=== PATIENT | male | born 1940 | race African-American/Black ===

== ENCOUNTER → 2016-09-21 | Outpatient (CLI) | payer MEDICARE, OTHER ==
[~2016-09-21] MED LIST: AMLO10TA4 PO; ASPI-986 PO; ASPIRIN; FINA5TAB11 PO; IBUP-1636 PO; METO25TA6 PO; METOPROLOL; OMEP40CA34 PO; SIMV80TA70 PO; SIMVASTATIN
== END | disposition home or self-care (01) ==
LOC: RAD 15:16
PROVIDERS: ATTEND Internal Medicine Nephrology
DX: Z01.818 Encounter for other preprocedural examination (principal); R06.02 Shortness of breath
CPT/HCPCS: 71010

== ENCOUNTER → 2017-07-20 | Outpatient (CLI) | payer MEDICARE, OTHER ==
[~2017-07-20] MED LIST changes: -ASPIRIN; +FENTANYL CITRATE/PF 50MCG/ML 2ML VIAL ONE; +GLYCOPYRROLATE 0.2 MG/ML 2ML VIAL ONE; -METOPROLOL; +NEOSTIGMINE METHYLSULFATE 1MG/ML 10 ML VIAL ONE; +PHENYLEPHRINE HCL 10 MG/ML 1ML (IV VIAL) IV ONE; +PROPOFOL 200MG/20ML VIAL IV ONE; -SIMVASTATIN; +SUCCINYLCHOLINE CHLORIDE 200MG/10ML VIAL IV ONE; +VECURONIUM BROMIDE 10 MG/VIAL IV ONE
== END | disposition home or self-care (01) ==
LOC: RAD 16:14
PROVIDERS: ATTEND Internal Medicine Nephrology
DX: Z01.818 Encounter for other preprocedural examination (principal); K46.9 Unspecified abdominal hernia without obstruction or gangrene; I10 Essential (primary) hypertension; Z86.79 Personal history of other diseases of the circulatory system
CPT/HCPCS: 71045

== ENCOUNTER → 2017-07-21 | Day surgery (SDC) | payer MEDICARE, OTHER ==
[~2017-07-21] VITALS: Ht 182.9 cm; Wt 86.2 kg
[~2017-07-21] MED LIST changes: +BUPIVACAINE HCL 0.5% (5MG/ML) 50ML ONE; +BUPIVACAINE HCL/PF 0.5% (5MG/ML) 10ML ONE; -FENTANYL CITRATE/PF 50MCG/ML 2ML VIAL ONE; -GLYCOPYRROLATE 0.2 MG/ML 2ML VIAL ONE; +HYDRALAZINE 20MG/ML VIAL IV SCH; +HYDROCODONE/ACETAMINOPHEN 5/325MG TABLET PO PRN; +HYDROMORPHONE HCL/PF 2MG/ML CPJ IV PRN; -NEOSTIGMINE METHYLSULFATE 1MG/ML 10 ML VIAL ONE; +ONDANSETRON HCL 4MG/2ML VIAL IV PRN; -PHENYLEPHRINE HCL 10 MG/ML 1ML (IV VIAL) IV ONE; -PROPOFOL 200MG/20ML VIAL IV ONE; +SKIN ADHESIVE 0.7 GM EA TOP ONE; -SUCCINYLCHOLINE CHLORIDE 200MG/10ML VIAL IV ONE; -VECURONIUM BROMIDE 10 MG/VIAL IV ONE
[2017-07-21 11:55] VITALS: BP 138/65
== END | disposition home or self-care (01) ==
LOC: OR 06:05
PROVIDERS: ATTEND Surgery
DX: K40.90 Unilateral inguinal hernia, without obstruction or gangrene, not specified as recurrent (principal); I10 Essential (primary) hypertension; I25.10 Atherosclerotic heart disease of native coronary artery without angina pectoris; I25.2 Old myocardial infarction; M19.90 Unspecified osteoarthritis, unspecified site; Z79.82 Long term (current) use of aspirin; Z79.899 Other long term (current) drug therapy; Z95.1 Presence of aortocoronary bypass graft; Z86.79 Personal history of other diseases of the circulatory system; N40.0 Benign prostatic hyperplasia without lower urinary tract symptoms
CPT/HCPCS: 49650; C1781; G0168; J0330; J2370; J2710; J3010; J3490; J7030; J7120; J2704

== ENCOUNTER 2018-08-17 05:53 | Day surgery (SDC) | payer MEDICARE, OTHER ==
[~2018-08-17] VITALS: Ht 185.4 cm; Wt 89.4 kg
[~2018-08-17 05:53] MED LIST changes: -BUPIVACAINE HCL 0.5% (5MG/ML) 50ML ONE; -BUPIVACAINE HCL/PF 0.5% (5MG/ML) 10ML ONE; -HYDRALAZINE 20MG/ML VIAL IV SCH; -HYDROCODONE/ACETAMINOPHEN 5/325MG TABLET PO PRN; -HYDROMORPHONE HCL/PF 2MG/ML CPJ IV PRN; -ONDANSETRON HCL 4MG/2ML VIAL IV PRN; -SKIN ADHESIVE 0.7 GM EA TOP ONE
[2018-08-17] MEDS ORDERED: SKIN ADHESIVE 0.7 GM EA TOP ONE ×2 (05:57→09:03)
[2018-08-17] MEDS ORDERED: INDOCYANINE GREEN 25 MG VIAL IV ONE (05:57)
[2018-08-17] MEDS ORDERED: BUPIVACAINE HCL 0.5% (5MG/ML) 50ML ONE (05:58)
[2018-08-17] MEDS ORDERED: CEFAZOLIN SODIUM 1000MG/VIAL ONE (06:13)
[2018-08-17] MEDS ORDERED: PROPOFOL 200MG/20ML VIAL IV ONE (06:13)
[2018-08-17] MEDS ORDERED: MIDAZOLAM HCL 2 MG/2 ML VIAL ONE (06:13)
[2018-08-17] MEDS ORDERED: FENTANYL CITRATE/PF 50MCG/ML 2ML VIAL ONE (06:13)
[2018-08-17] MEDS ORDERED: SODIUM CHLORIDE 0.9% 10ML VIAL ONE ×3 (06:13→08:50)
[2018-08-17] MEDS ORDERED: LIDOCAINE HCL/PF 1% 10 MG/ML 5ML VIAL ONE (06:14)
[2018-08-17] MEDS ORDERED: EPHEDRINE SULFATE 50MG/ML VIAL ONE (06:14)
[2018-08-17] MEDS ORDERED: LACTATED RINGERS 1,000 ML IV SCH (06:15)
[2018-08-17] MEDS ORDERED: ROCURONIUM BROMIDE 10MG/ML VIAL 5ML IV ONE (06:19)
[2018-08-17] MEDS ORDERED: PHENYLEPHRINE HCL 10 MG/ML 1ML (IV VIAL) IV ONE (06:29)
[2018-08-17] MEDS ORDERED: SUCCINYLCHOLINE CHLORIDE 200MG/10ML IV ONE (07:11)
[2018-08-17] MEDS ORDERED: ATOR-2 PO (07:26)
[2018-08-17] MEDS ORDERED: DEXAMETHASONE 4MG/ML 1ML VIAL ONE (07:32)
[2018-08-17] MEDS ORDERED: ONDANSETRON HCL 4MG/2ML INJ ONE (07:34)
[2018-08-17] MEDS ORDERED: NEOSTIGMINE METHYLSULFATE 1MG/ML 10 ML VIAL ONE (08:48)
[2018-08-17] MEDS ORDERED: GLYCOPYRROLATE 0.2 MG/ML 2ML VIAL ONE (08:48)
[2018-08-17] MEDS ORDERED: HYDRALAZINE 20MG/ML VIAL ONE (08:50)
[2018-08-17] MEDS ORDERED: KETOROLAC 30MG/ML VIAL ONE (08:55)
[2018-08-17] MEDS ORDERED: HYDROMORPHONE HCL/PF 2MG/ML CPJ IV PRN (09:30)
[2018-08-17] MEDS ORDERED: DOCU-138 PO (09:46)
[2018-08-17 10:20] VITALS: BP 122/68
== END 2018-08-17 11:33 | disposition home or self-care (01) ==
LOC: OR 05:53
PROVIDERS: ATTEND Surgery
DX: K40.90 Unilateral inguinal hernia, without obstruction or gangrene, not specified as recurrent (principal); I10 Essential (primary) hypertension; I25.10 Atherosclerotic heart disease of native coronary artery without angina pectoris; I25.2 Old myocardial infarction; M48.061 Spinal stenosis, lumbar region without neurogenic claudication; E78.00 Pure hypercholesterolemia, unspecified; I51.7 Cardiomegaly; M19.90 Unspecified osteoarthritis, unspecified site; Z88.8 Allergy status to other drugs, medicaments and biological substances; Z95.1 Presence of aortocoronary bypass graft; Z98.890 Other specified postprocedural states; Z79.899 Other long term (current) drug therapy; Z79.82 Long term (current) use of aspirin; Z90.49 Acquired absence of other specified parts of digestive tract
CPT/HCPCS: 49650; 71045; C1781; G0168; J0330; J0360; J0690; J1100; J1170; J1885; J2250; J2370; J2405; J2704; J2710; J3010; J3490; Q9957

== ENCOUNTER → 2019-05-09 | Outpatient (CLI) | payer MEDICARE, OTHER ==
[~2019-05-09] MED LIST changes: +ATOR-2 PO; +DOCU-138 PO; -METO25TA6 PO; +OMEP40CA12 PO; -OMEP40CA34 PO; -SIMV80TA70 PO
== END | disposition home or self-care (01) ==
LOC: RAD 10:04
PROVIDERS: ATTEND Internal Medicine Nephrology
DX: Z01.818 Encounter for other preprocedural examination (principal); K40.90 Unilateral inguinal hernia, without obstruction or gangrene, not specified as recurrent
CPT/HCPCS: 71045

== ENCOUNTER 2019-05-25 09:20 | Day surgery (SDC) | payer MEDICARE, OTHER ==
[~2019-05-25] VITALS: Ht 182.9 cm; Wt 83.0 kg
[2019-05-25] MEDS ORDERED: SKIN ADHESIVE 0.7 GM EA TOP ONE (10:02)
[2019-05-25] MEDS ORDERED: BUPIVACAINE HCL/PF 0.5% (5MG/ML) 10ML ONE ×2 (10:04→12:17)
[2019-05-25] MEDS ORDERED: FENTANYL CITRATE/PF 50MCG/ML 2ML VIAL ONE (12:13)
[2019-05-25] MEDS ORDERED: PROPOFOL 200MG/20ML VIAL IV ONE (12:13)
[2019-05-25] MEDS ORDERED: MIDAZOLAM HCL 2 MG/2 ML VIAL ONE (12:13)
[2019-05-25] MEDS ORDERED: ONDANSETRON HCL 4MG/2ML INJ IV PRN (12:30)
[2019-05-25] MEDS ORDERED: MEPERIDINE HCL/PF 25MG/ML CPJ IV PRN (12:30)
[2019-05-25] MEDS ORDERED: LABETALOL 5MG/ML SYR 20 MG/4 ML SYRINGE IV PRN (12:30)
[2019-05-25] MEDS ORDERED: HYDROMORPHONE HCL/PF 2MG/ML CPJ IV PRN (12:30)
[2019-05-25] MEDS ORDERED: CARB1TAB9 PO (12:57)
[2019-05-25] MEDS ORDERED: LATA2.5D2 EACHEYE (12:58)
[2019-05-25] MEDS ORDERED: BUPIVACAINE HCL 0.5% 125 ML in ON-Q PM012 DRUG DELIV DEVICE 1 EA IR SCH (13:15)
[2019-05-25] MEDS ORDERED: DEXAMETHASONE 4MG/ML 1ML VIAL ONE (13:23)
[2019-05-25] MEDS ORDERED: ONDANSETRON HCL 4MG/2ML INJ ONE (13:23)
[2019-05-25 14:50] VITALS: BP 148/77
== END 2019-05-25 15:50 | disposition home or self-care (01) ==
LOC: OR 09:20
PROVIDERS: ATTEND Surgery
DX: K40.91 Unilateral inguinal hernia, without obstruction or gangrene, recurrent (principal); I12.0 Hypertensive chronic kidney disease with stage 5 chronic kidney disease or end stage renal disease; N18.2 Chronic kidney disease, stage 2 (mild); I25.10 Atherosclerotic heart disease of native coronary artery without angina pectoris; E78.00 Pure hypercholesterolemia, unspecified; N40.0 Benign prostatic hyperplasia without lower urinary tract symptoms; I25.2 Old myocardial infarction; G20 Parkinson's disease; F43.10 Post-traumatic stress disorder, unspecified; Z79.82 Long term (current) use of aspirin; Z79.899 Other long term (current) drug therapy; Z88.8 Allergy status to other drugs, medicaments and biological substances; Z95.1 Presence of aortocoronary bypass graft; Z98.890 Other specified postprocedural states; Z90.49 Acquired absence of other specified parts of digestive tract
CPT/HCPCS: 49520; C1781; J1100; J1170; J2250; J2405; J2704; J3010; J3490